=== PATIENT | female | born 1935 | race Caucasian/White ===

== ENCOUNTER 2017-07-22 15:52 | Inpatient (IN) | payer MEDICARE, BC ==
[~2017-07-22] VITALS: Ht 162.6 cm; Wt 49.5 kg
[2017-07-22 16:34] LABS: BASOPHILS % (AUTO) 0.4 % (0-1); EOSINOPHILS # (AUTO) 0.3 X10'3 (0-0.9); EOSINOPHILS % (AUTO) 3.7 % (0-6); HEMATOCRIT 36.6 % (35.0-45.0); HEMOGLOBIN 12.1 g/dl (12.0-16.0); LYMPHOCYTES # (AUTO) 2.2 X10'3 (1.1-4.8); LYMPHOCYTES % (AUTO) 31.2 % (21-51); MEAN CORPUSCULAR HEMOGLOBIN 30.3 PG (27.0-31.0); MEAN CORPUSCULAR HGB CONC 33.1 % (33.0-36.5); MEAN CORPUSCULAR VOLUME 91.6 FL (78-98); MEAN PLATELET VOLUME 6.9 FL (7.4-10.4); MONOCYTES # (AUTO) 0.4 X10'3 (0-0.9); MONOCYTES % (AUTO) 6.1 % (2-12); NEUTROPHILS # (AUTO) 4.1 X10'3 (1.8-7.7); NEUTROPHILS % (AUTO) 58.6 % (42-75); PLATELET COUNT 349 X10'3 (140-440); RED BLOOD COUNT 3.99 X10'6 (4.20-5.60); RED CELL DISTRIBUTION WIDTH 15.4 % (11.5-14.5); WHITE BLOOD COUNT 7.1 X10'3 (4.5-11.0)
[2017-07-22 16:45] LABS: INR 0.9 INR; PARTIAL THROMBOPLASTIN TIME 25 SECONDS (22-32); PROTHROMBIN TIME 9.8 SECONDS (9.0-12.0)
[2017-07-22 16:49] LABS: ALANINE AMINOTRANSFERASE 11 U/L (12-78); ALBUMIN 4.2 G/DL (3.4-5.0); ALBUMIN/GLOBULIN RATIO 1.4 (1.1-1.5); ALKALINE PHOSPHATASE 103 IU/L (46-116); ANION GAP 11 (8-16); ASPARTATE AMINO TRANSFERASE 20 U/L (10-37); BILIRUBIN,TOTAL 0.3 MG/DL (0.1-1.0); BLOOD UREA NITROGEN 7 MG/DL (7-18); CALCIUM 9.4 MG/DL (8.5-10.1); CHLORIDE 102 MMOL/L (99-107); GLUCOSE 102 MG/DL (70-104); POTASSIUM 4.2 MMOL/L (3.5-5.1); SODIUM 138 MMOL/L (135-145); TOTAL CARBON DIOXIDE 24.9 MMOL/L (24-32); TOTAL PROTEIN 7.3 G/DL (6.4-8.2); eGFR 53 ML/MIN
[2017-07-22] MEDS ORDERED: metoprolol tartrate 1mg/ml inj IV PRN (17:40)
[2017-07-22] MEDS ORDERED: potassium Cl 20 mEq SR tablet PO PRN ×2 (17:40)
[2017-07-22] MEDS ORDERED: magnesium hydroxide 30ml (MOM) UD suspension PO PRN (17:40)
[2017-07-22] MEDS ORDERED: potassium Cl 40MEQ/NS 500ml 500 ML IV PRN ×2 (17:40)
[2017-07-22] MEDS ORDERED: regadenoson 0.4mg/5ml syringe IV PRN (17:40)
[2017-07-22] MEDS ORDERED: magnesium Cl slow-release 64mg tablet PO PRN (17:40)
[2017-07-22] MEDS ORDERED: mag hydrox/Alum hydrox/simeth 30ml oral suspension PO PRN (17:40)
[2017-07-22] MEDS ORDERED: nitroGLYCERIN 0.4mg SUBLingual tab SL PRN (17:40)
[2017-07-22] MEDS ORDERED: ondansetron/PF 4mg/2ml inj IV PRN (17:40)
[2017-07-22] MEDS ORDERED: CAFFEINE CITRATE 60 MG/3 ML injection vial IV PRN (17:40)
[2017-07-22] MEDS ORDERED: magnesium 2GM in 50ml NS 50 ML IV PRN (17:40)
[2017-07-22] MEDS ORDERED: acetaminophen 325mg tablet PO PRN (17:40)
[2017-07-22] MEDS ORDERED: magnesium 4gm in 100ml NS 100 ML IV PRN (17:40)
[2017-07-22] MEDS ORDERED: morphine 4 MG/ML inj SYRINge IV PRN (17:40)
[2017-07-22] MEDS ORDERED: HYDROcodone/acetaminophen 10/325mg tab PO ONE (17:45)
[2017-07-22] MEDS ORDERED: PRAV40TA3 PO (17:51)
[2017-07-22] MEDS ORDERED: HYDR-3965 PO (17:51)
[2017-07-22] MEDS ORDERED: VERA120C2 PO (17:51)
[2017-07-22] MEDS ORDERED: SYN0.088T PO (17:51)
[2017-07-22] MEDS ORDERED: ASPI-1265 PO (17:51)
[2017-07-22 19:14] LABS: CLARITY,URINE CLEAR (Clear); COLOR,URINE STRAW (Yellow); GLUCOSE, URINE NEGATIVE (Neg); KETONES,URINE NEGATIVE (Neg); LEUKOCYTE ESTERASE ,URINE NEGATIVE (Neg); NITRITES, URINE NEGATIVE (Neg); OCCULT BLOOD,URINE NEGATIVE (Neg); PROTEIN,URINE NEGATIVE (Neg); UROBILINOGEN,URINE 0.2 E.U/dL (0.2-1.0)
[2017-07-22 19:15] LABS: UA COLLECTION TYPE CLN CATCH MIDSTREAM
[2017-07-22 19:48] LABS: MAGNESIUM 2.3 MG/DL (1.5-2.4)
[2017-07-22 20:00] VITALS: BP 155/68
[2017-07-22 22:00] VITALS: BP 153/61
[2017-07-22] MEDS: HYDROcodone/acetaminophen 5mg/325mg tablet PO PRN (22:57)
[2017-07-23] VITALS (8 sets, daily range): BP systolic 139–192; BP diastolic 46–75
[2017-07-23] MEDS: HYDROcodone/acetaminophen 5mg/325mg tablet PO PRN ×2 (04:50→09:11)
[2017-07-23 05:11] LABS: BASOPHILS % (AUTO) 0.6 % (0-1); EOSINOPHILS # (AUTO) 0.3 X10'3 (0-0.9); EOSINOPHILS % (AUTO) 5.3 % (0-6); HEMATOCRIT 32.5 % (35.0-45.0); HEMOGLOBIN 10.7 g/dl (12.0-16.0); LYMPHOCYTES # (AUTO) 2.1 X10'3 (1.1-4.8); LYMPHOCYTES % (AUTO) 35.7 % (21-51); MEAN CORPUSCULAR HEMOGLOBIN 30.3 PG (27.0-31.0); MEAN CORPUSCULAR VOLUME 91.9 FL (78-98); MEAN PLATELET VOLUME 7.2 FL (7.4-10.4); MONOCYTES # (AUTO) 0.5 X10'3 (0-0.9); MONOCYTES % (AUTO) 8.4 % (2-12); PLATELET COUNT 281 X10'3 (140-440); RED BLOOD COUNT 3.54 X10'6 (4.20-5.60); RED CELL DISTRIBUTION WIDTH 15.4 % (11.5-14.5); WHITE BLOOD COUNT 5.9 X10'3 (4.5-11.0)
[2017-07-23 05:30] LABS: ALANINE AMINOTRANSFERASE 11 U/L (12-78); ALBUMIN 3.3 G/DL (3.4-5.0); ALBUMIN/GLOBULIN RATIO 1.1 (1.1-1.5); ALKALINE PHOSPHATASE 83 IU/L (46-116); ANION GAP 8 (8-16); ASPARTATE AMINO TRANSFERASE 19 U/L (10-37); BILIRUBIN,TOTAL 0.3 MG/DL (0.1-1.0); BLOOD UREA NITROGEN 10 MG/DL (7-18); BUN/CREATININE RATIO 10.8 (6.6-38.0); CALCIUM 8.5 MG/DL (8.5-10.1); CHLORIDE 105 MMOL/L (99-107); CREATININE 0.93 MG/DL (0.40-0.90); GLUCOSE 93 MG/DL (70-104); POTASSIUM 4.1 MMOL/L (3.5-5.1); SODIUM 141 MMOL/L (135-145); TOTAL CARBON DIOXIDE 27.8 MMOL/L (24-32); TOTAL PROTEIN 6.2 G/DL (6.4-8.2); eGFR 58 ML/MIN
[2017-07-23 05:34] LABS: CHOL/HDL RATIO 2.5 (0.00-4.99); CHOLESTEROL 124 MG/DL (0-200); HDL CHOLESTEROL 49 MG/DL (35-60); LDL CHOLESTEROL 64 MG/DL (50-100); MAGNESIUM 2.3 MG/DL (1.5-2.4); TRIGLYCERIDES 91 MG/DL (20-135)
[2017-07-23] MEDS ORDERED: K and/or MAG REPLACEMENT MC SCH (08:00)
[2017-07-23] MEDS ORDERED: enoxaparin 40mg/0.4ml syringe SQ SCH (08:00)
[2017-07-23] MEDS ORDERED: regadenoson 0.4mg/5ml syringe IV ONE (09:38)
[2017-07-23] MEDS ORDERED: HYDROcodone/acetaminophen 5mg/325mg tablet PO PRN (11:40)
[2017-07-23] MEDS ORDERED: pravastatin 40mg tablet PO SCH (21:00)
[2017-07-24] MEDS ORDERED: levoTHYROXINE 25mcg tablet PO SCH (07:00)
[2017-07-24] MEDS ORDERED: aspirin 81mg tab.chew PO SCH (08:00)
[2017-07-24] MEDS ORDERED: VERAPAMIL HCL 120 MG PO SCH (08:00)
[2017-07-24] MEDS ORDERED: verapamil SR 120mg (sust. release) tab PO SCH (08:00)
== END 2017-07-23 13:56 | disposition home or self-care (01) | DRG 313 ==
LOC: ER 15:53 → ED HOLD 18:45 → PCU 3S 19:30
PROVIDERS: ADMIT Internal Medicine; ATTEND Internal Medicine
PROC: 3E073KZ Introduction of Other Diagnostic Substance into Coronary Artery, Percutaneous Approach (ICD-10-PCS; principal; 2017-07-23)
DX: R07.9 Chest pain, unspecified (principal); I10 Essential (primary) hypertension; Z79.899 Other long term (current) drug therapy; Z79.82 Long term (current) use of aspirin; Z87.891 Personal history of nicotine dependence
CPT/HCPCS: 36415; 71045; 78452; 80053; 80061; 81003; 83036; 83735; 84484; 85025; 85610; 85730; 87070; 93005; 93017; 93306; 99285; A9500; J1650

== ENCOUNTER 2019-04-15 09:43 | Emergency (ER) | payer MEDICARE, BC ==
[~2019-04-15] VITALS: Ht 162.6 cm; Wt 51.8 kg
[~2019-04-15 09:43] MED LIST: ASPI-1265 PO; HYDR-3965 PO; PRAV40TA3 PO; SYN0.088T PO; VERA120C2 PO
[2019-04-15 10:11] VITALS: BP 160/69
[2019-04-15 10:17] LABS: BASOPHILS % (AUTO) 0.2 % (0-1); EOSINOPHILS % (AUTO) 0.3 % (0-6); HEMATOCRIT 38.7 % (35.0-45.0); HEMOGLOBIN 12.9 g/dl (12.0-16.0); LYMPHOCYTES # (AUTO) 2.2 X10'3 (1.1-4.8); LYMPHOCYTES % (AUTO) 26.3 % (21-51); MEAN CORPUSCULAR HEMOGLOBIN 31.3 PG (27.0-31.0); MEAN CORPUSCULAR HGB CONC 33.3 g/dL (33.0-36.5); MEAN PLATELET VOLUME 6.6 FL (7.4-10.4); MONOCYTES # (AUTO) 0.8 X10'3 (0-0.9); MONOCYTES % (AUTO) 9.1 % (2-12); NEUTROPHILS # (AUTO) 5.5 X10'3 (1.8-7.7); NEUTROPHILS % (AUTO) 64.1 % (42-75); PLATELET COUNT 290 X10'3 (140-440); RED BLOOD COUNT 4.11 X10'6 (4.20-5.60); RED CELL DISTRIBUTION WIDTH 15.7 % (11.5-14.5); WHITE BLOOD COUNT 8.5 X10'3 (4.5-11.0)
[2019-04-15 10:29] LABS: ALANINE AMINOTRANSFERASE 9 U/L (12-78); ALBUMIN 3.6 G/DL (3.4-5.0); ALKALINE PHOSPHATASE 79 IU/L (46-116); ANION GAP 7 (8-16); ASPARTATE AMINO TRANSFERASE 15 U/L (10-37); BILIRUBIN,TOTAL 0.5 MG/DL (0.1-1.0); BLOOD UREA NITROGEN 8 MG/DL (7-18); BUN/CREATININE RATIO 8.6 (6.6-38.0); CALCIUM 9.1 MG/DL (8.5-10.1); CHLORIDE 101 MMOL/L (99-107); CREATININE 0.93 MG/DL (0.40-0.90); GLUCOSE 94 MG/DL (70-104); POTASSIUM 3.3 MMOL/L (3.5-5.1); SODIUM 139 MMOL/L (135-145); TOTAL CARBON DIOXIDE 31.2 MMOL/L (24-32); TOTAL PROTEIN 7.2 G/DL (6.4-8.2); eGFR 58 ML/MIN
[2019-04-15] MEDS ORDERED: ipratropium/albuterol 3ml nebule NEB ONE (10:30)
[2019-04-15 10:33] LABS: PARTIAL THROMBOPLASTIN TIME 25 SECONDS (22-32)
[2019-04-15] MEDS ORDERED: PRED20TA PO (11:24)
[2019-04-15] MEDS ORDERED: AZIT500T PO (11:24)
[2019-04-15] MEDS ORDERED: potassium Cl 20 mEq SR tablet PO ONE (11:30)
== END 2019-04-15 11:51 | disposition home or self-care (01) ==
LOC: ER 09:44
DX: J40 Bronchitis, not specified as acute or chronic (principal); J06.9 Acute upper respiratory infection, unspecified; I10 Essential (primary) hypertension; Z79.2 Long term (current) use of antibiotics; Z79.82 Long term (current) use of aspirin; Z79.899 Other long term (current) drug therapy
CPT/HCPCS: 36415; 71045; 80053; 83880; 85025; 85610; 85730; 94640; 94760; 99284

== ENCOUNTER 2019-07-11 07:54 | Outpatient (CLI) | payer MEDICARE, BC ==
[2019-07-11 08:44] LABS: BASOPHILS % (AUTO) 0.7 % (0-1); EOSINOPHILS # (AUTO) 0.1 X10'3 (0-0.9); EOSINOPHILS % (AUTO) 2.3 % (0-6); HEMATOCRIT 38.8 % (35.0-45.0); HEMOGLOBIN 12.7 g/dl (12.0-16.0); LYMPHOCYTES # (AUTO) 2.4 X10'3 (1.1-4.8); MEAN CORPUSCULAR HGB CONC 32.6 g/dL (33.0-36.5); MEAN PLATELET VOLUME 6.9 FL (7.4-10.4); MONOCYTES # (AUTO) 0.6 X10'3 (0-0.9); MONOCYTES % (AUTO) 9.9 % (2-12); NEUTROPHILS # (AUTO) 3.2 X10'3 (1.8-7.7); NEUTROPHILS % (AUTO) 50.1 % (42-75); PLATELET COUNT 409 X10'3 (140-440); RED BLOOD COUNT 3.96 X10'6 (4.20-5.60); WHITE BLOOD COUNT 6.4 X10'3 (4.5-11.0)
[2019-07-11 08:57] LABS: ALANINE AMINOTRANSFERASE 10 U/L (12-78); ALBUMIN 3.6 G/DL (3.4-5.0); ALBUMIN/GLOBULIN RATIO 1.5 (1.1-1.5); ALKALINE PHOSPHATASE 69 IU/L (46-116); ANION GAP 13 (8-16); ASPARTATE AMINO TRANSFERASE 18 U/L (10-37); BILIRUBIN,TOTAL 0.7 MG/DL (0.1-1.0); BLOOD UREA NITROGEN 9 MG/DL (7-18); BUN/CREATININE RATIO 9.9 (6.6-38.0); C-REACTIVE PROTEIN 0.07 MG/DL (0.0-0.5); CALCIUM 8.7 MG/DL (8.5-10.1); CHLORIDE 101 MMOL/L (99-107); CREATININE 0.91 MG/DL (0.40-0.90); GLUCOSE 73 MG/DL (70-104); LIPASE 109 U/L (73-393); POTASSIUM 3.6 MMOL/L (3.5-5.1); SODIUM 139 MMOL/L (135-145); TOTAL CARBON DIOXIDE 25.2 MMOL/L (24-32); eGFR 59 ML/MIN
== END 2019-07-11 23:59 | disposition home or self-care (01) ==
LOC: LAB 07:54
PROVIDERS: ATTEND Family Medicine
DX: R10.9 Unspecified abdominal pain (principal)
CPT/HCPCS: 36415; 80053; 83690; 85025; 86140

== ENCOUNTER 2019-07-11 11:25 | Emergency (ER) | payer MEDICARE, BC ==
[~2019-07-11] VITALS: Ht 162.6 cm; Wt 45.5 kg
[2019-07-11 12:33] LABS: CLARITY,URINE CLEAR (Clear); COLOR,URINE YELLOW (Yellow); GLUCOSE, URINE NEGATIVE (Neg); KETONES,URINE 40 mg/dl (Neg); LEUKOCYTE ESTERASE ,URINE TRACE (Neg); NITRITES, URINE NEGATIVE (Neg); OCCULT BLOOD,URINE NEGATIVE (Neg); PH,URINE 5.5 (4.8-8.0); PROTEIN,URINE TRACE mg/dl (Neg)
[2019-07-11 12:38] LABS: UA COLLECTION TYPE CLN CATCH MIDSTREAM
[2019-07-11 12:40] LABS: HYALINE CASTS >30 /LPF (NEGATIVE); SQUAMOUS EPITHELIAL CELL,UR MODERATE /LPF (FEW)
[2019-07-11 12:41] LABS: BACTERIA,URINE 1+ /HPF (Neg); MUCUS STRANDS MODERATE /LPF (Neg); RBC,URINE 0-2 /HPF (0-2); TRANSITIONAL EPI CELLS,URINE FEW /HPF; WBC,URINE 0-4 /HPF (0-4)
[2019-07-11 13:11] LABS: BASOPHILS % (AUTO) 0.6 % (0-1); EOSINOPHILS % (AUTO) 0.5 % (0-6); HEMATOCRIT 40.3 % (35.0-45.0); HEMOGLOBIN 13.1 g/dl (12.0-16.0); LYMPHOCYTES % (AUTO) 24.6 % (21-51); MEAN CORPUSCULAR HEMOGLOBIN 31.8 PG (27.0-31.0); MEAN CORPUSCULAR HGB CONC 32.6 g/dL (33.0-36.5); MEAN CORPUSCULAR VOLUME 97.5 FL (78-98); MEAN PLATELET VOLUME 6.7 FL (7.4-10.4); MONOCYTES # (AUTO) 0.7 X10'3 (0-0.9); MONOCYTES % (AUTO) 8.1 % (2-12); NEUTROPHILS # (AUTO) 5.3 X10'3 (1.8-7.7); NEUTROPHILS % (AUTO) 66.2 % (42-75); PLATELET COUNT 432 X10'3 (140-440); RED BLOOD COUNT 4.13 X10'6 (4.20-5.60); RED CELL DISTRIBUTION WIDTH 13.8 % (11.5-14.5)
[2019-07-11 13:24] LABS: ALANINE AMINOTRANSFERASE 9 U/L (12-78); ALBUMIN/GLOBULIN RATIO 1.4 (1.1-1.5); ALKALINE PHOSPHATASE 76 IU/L (46-116); ANION GAP 11 (8-16); ASPARTATE AMINO TRANSFERASE 23 U/L (10-37); BILIRUBIN,TOTAL 0.5 MG/DL (0.1-1.0); BLOOD UREA NITROGEN 10 MG/DL (7-18); BUN/CREATININE RATIO 9.2 (6.6-38.0); CALCIUM 9.3 MG/DL (8.5-10.1); CHLORIDE 98 MMOL/L (99-107); CREATININE 1.09 MG/DL (0.40-0.90); GLUCOSE 93 MG/DL (70-104); LIPASE 128 U/L (73-393); POTASSIUM 3.3 MMOL/L (3.5-5.1); SODIUM 135 MMOL/L (135-145); TOTAL CARBON DIOXIDE 25.9 MMOL/L (24-32); TOTAL PROTEIN 6.8 G/DL (6.4-8.2); eGFR 48 ML/MIN
[2019-07-11 14:33] VITALS: BP 110/45
--- NOTE | 2019-07-15 11:44 | NUR ---
PT CALLED AND INFORMED THAT LAB RESULTS SHOWED SHE HAS A UTI REQUIRING AND ABX. PT REQUESTED THAT MEDICATION BE CALLED INTO THE [facility]. KEFLEX 500MG, 1 PO BID x7 DAYS #14 CALLED INTO [facility] REQUESTED BY PT. PT INFORMED THAT SHE NEEDS TO TAKE MEDICATION TILL GONE AND TO F/U WITH PMD OR RETURN TO THE THE ER SHOULD SYMPTOMS PERSIST/WORSEN. PT QUESTIONS ANSWERED AND STATED UNDERSTANDING.
== END 2019-07-11 14:35 | disposition home or self-care (01) ==
LOC: ER 11:25
DX: R10.31 Right lower quadrant pain (principal); I10 Essential (primary) hypertension; G89.29 Other chronic pain; M54.9 Dorsalgia, unspecified; Z79.82 Long term (current) use of aspirin; Z79.899 Other long term (current) drug therapy
CPT/HCPCS: 36415; 74176; 80053; 81001; 83690; 85025; 86140; 87077; 87088; 99284

== ENCOUNTER 2019-07-27 09:43 | Outpatient (CLI) | payer MEDICARE, BC ==
[2019-07-27] MEDS ORDERED: iohexol 350MG/ML 100ml bottle IV ONE (10:06)
== END 2019-07-27 23:59 | disposition home or self-care (01) ==
LOC: 64 CT 09:43
PROVIDERS: ATTEND Family Medicine
DX: R06.02 Shortness of breath (principal); J98.4 Other disorders of lung
CPT/HCPCS: 71275; Q9967

== ENCOUNTER 2020-06-21 11:32 | Emergency (ER) | payer MEDICARE ==
[~2020-06-21] VITALS: Ht 162.6 cm; Wt 48.6 kg
[2020-06-21 12:06] LABS: HEMOGLOBIN 11.3 g/dl (12.0-16.0); WHITE BLOOD COUNT 5.3 X10'3 (4.5-11.0)
[2020-06-21 12:08] LABS: BASOPHILS % (AUTO) 0.5 % (0-1); EOSINOPHILS # (AUTO) 0.1 X10'3 (0-0.9); HEMATOCRIT 34.5 % (35.0-45.0); LYMPHOCYTES # (AUTO) 1.3 X10'3 (1.1-4.8); LYMPHOCYTES % (AUTO) 24.1 % (21-51); MEAN CORPUSCULAR HEMOGLOBIN 31.6 PG (27.0-31.0); MEAN CORPUSCULAR HGB CONC 32.9 g/dL (33.0-36.5); MEAN CORPUSCULAR VOLUME 96.1 FL (78-98); MEAN PLATELET VOLUME 6.4 FL (7.4-10.4); MONOCYTES # (AUTO) 0.4 X10'3 (0-0.9); NEUTROPHILS # (AUTO) 3.5 X10'3 (1.8-7.7); NEUTROPHILS % (AUTO) 66.4 % (42-75); PLATELET COUNT 378 X10'3 (140-440); RED BLOOD COUNT 3.59 X10'6 (4.20-5.60); RED CELL DISTRIBUTION WIDTH 13.7 % (11.5-14.5)
[2020-06-21 12:20] LABS: ALANINE AMINOTRANSFERASE 15 U/L (12-78); ALBUMIN 3.4 G/DL (3.4-5.0); ALBUMIN/GLOBULIN RATIO 1.1 (1.1-1.5); ALKALINE PHOSPHATASE 93 IU/L (46-116); ANION GAP 8 (8-16); ASPARTATE AMINO TRANSFERASE 18 U/L (10-37); BILIRUBIN,TOTAL 0.3 MG/DL (0.1-1.0); BLOOD UREA NITROGEN 12 MG/DL (7-18); BUN/CREATININE RATIO 13.8 (6.6-38.0); CALCIUM 8.8 MG/DL (8.5-10.1); CHLORIDE 94 MMOL/L (99-107); CREATININE 0.87 MG/DL (0.40-0.90); GLUCOSE 130 MG/DL (70-104); POTASSIUM 4.2 MMOL/L (3.5-5.1); SODIUM 130 MMOL/L (135-145); TOTAL PROTEIN 6.6 G/DL (6.4-8.2); eGFR 62 ML/MIN
[2020-06-21 12:42] LABS: PLATELET ESTIMATE NORMAL
[2020-06-21 12:43] LABS: ACANTHOCYTES FEW; BURR CELLS FEW; POLYCHROMASIA FEW
--- NOTE | 2020-06-21 13:08 | NUR ---
RIGHT THUMB LACERATIONS IRRIGATED WITH 500ML IRRIGATION NS WITH 30CC SYRINGE AND ZEROWET PER DR. SHARMA'S ORDER.
[2020-06-21 13:49] VITALS: BP 148/70
--- NOTE | 2020-06-21 13:56 | NUR ---
PT AMBULATED AROUND ER, TOLERATED WELL, SPO2 94% OR HIGHER, PT WITH NO DYSPNEA, PA AWARE
== END 2020-06-21 14:04 | disposition home or self-care (01) ==
LOC: ER 11:33
DX: R06.02 Shortness of breath (principal); R10.13 Epigastric pain; R51.9 Headache, unspecified; I10 Essential (primary) hypertension; Z87.891 Personal history of nicotine dependence; Z79.82 Long term (current) use of aspirin; Z79.899 Other long term (current) drug therapy
CPT/HCPCS: 36415; 71045; 80053; 83880; 84484; 85008; 85025; 93005; 99285

== ENCOUNTER 2021-08-14 14:31 | Outpatient (CLI) | payer MEDICARE ==
[~2021-08-14 14:31] MED LIST changes: +iohexol 350MG/ML 100ml bottle IV ONE
== END 2021-08-14 23:59 | disposition home or self-care (01) ==
LOC: RAD 14:31
PROVIDERS: ATTEND Family Medicine
DX: J84.10 Pulmonary fibrosis, unspecified (principal); I70.0 Atherosclerosis of aorta; J98.4 Other disorders of lung; K82.8 Other specified diseases of gallbladder; M47.814 Spondylosis without myelopathy or radiculopathy, thoracic region; M40.292 Other kyphosis, cervical region; N39.0 Urinary tract infection, site not specified; R79.89 Other specified abnormal findings of blood chemistry
CPT/HCPCS: 71275; 87088; J3490; Q9967; 87077; 87186

== ENCOUNTER 2021-09-09 10:14 | Outpatient (CLI) | payer MEDICARE ==
[~2021-09-09 10:14] MED LIST changes: -iohexol 350MG/ML 100ml bottle IV ONE
== END 2021-09-09 23:59 | disposition home or self-care (01) ==
LOC: RAD 10:14
PROVIDERS: ATTEND Family Medicine
DX: K82.8 Other specified diseases of gallbladder (principal); K86.89 Other specified diseases of pancreas; I70.0 Atherosclerosis of aorta; N85.8 Other specified noninflammatory disorders of uterus
CPT/HCPCS: 74178; J3490

== ENCOUNTER 2021-09-14 10:36 | Outpatient (CLI) | payer MEDICARE | END 2021-09-14 23:59 | disposition home or self-care (01) | LOC: RAD 10:36 | PROVIDERS: ATTEND Family Medicine | DX: K83.8 Other specified diseases of biliary tract (principal) | CPT/HCPCS: 74181 ==